=== PATIENT | male | born 1995 | race Caucasian/White ===

== ENCOUNTER 2017-09-18 11:02 | Emergency (ER) | payer OTHER ==
[~2017-09-18] VITALS: Ht 177.8 cm; Wt 69.2 kg
[2017-09-18 11:10] VITALS: BP 158/65
== END 2017-09-18 13:00 | disposition home or self-care (01) ==
LOC: ED 12:00
DX: M25.511 Pain in right shoulder (principal); J44.0 Chronic obstructive pulmonary disease with (acute) lower respiratory infection
CPT/HCPCS: 99284